=== PATIENT | male | born 1985 | race Caucasian/White ===

== ENCOUNTER 2024-03-16 21:20 | Emergency (ER) | payer OTHER ==
[2024-03-16] MEDS: cefTRIAXone 1 GM Vial IM ONE (22:44)
== END 2024-03-16 22:36 | disposition home or self-care (01) ==
LOC: JP.ED 21:20
DX: L03.116 Cellulitis of left lower limb (principal); L03.115 Cellulitis of right lower limb; R21 Rash and other nonspecific skin eruption
CPT/HCPCS: 99283

== ENCOUNTER 2024-08-10 19:30 | Emergency (ER) | payer OTHER | END 2024-08-10 20:14 | disposition home or self-care (01) | LOC: JP.ED 19:30 | DX: L20.9 Atopic dermatitis, unspecified (principal); Z79.899 Other long term (current) drug therapy | CPT/HCPCS: 99283 ==